=== PATIENT | female | born 1950 | race Hispanic/Latino ===

== ENCOUNTER 2018-12-09 07:37 | Day surgery (SDC) | payer OTHER ==
[2018-12-09 08:23] VITALS: PULSE 80; RESP 20; TEMP 97.5; O2SAT 97
--- NOTE | 2018-12-09 09:17 | CP.SDSHP ---
Same Day Surgery H & P - History Proposed Procedure: COLONSCOPY Pre-Op Diagnosis: SEE NOTES - Previous Medical/Surgical History Cardiac: Hypertension Neuro: Other Misc: Other Pain: 4.Moderate Pain - Allergies Allergies: Allergies suxamethonium chloride Allergy (Uncoded 12/09/18 08:07) ANAPHYLAXIS - Physical Exam General Appearance: N Vital Signs: Vital Signs 12/09/18 08:00 Temperature 97.5 F L Pulse Rate 80 Respiratory 20 Rate Blood Pressure 130/87 O2 Sat by Pulse 97 Oximetry Mental Status: Alert & Oriented x3 Neuro: WNL Heart: Other Lungs: WNL GI: Other - {Optional Preform as Required} Breast: WNL Abdomen: Other Rectal: Other Integument: WNL : WNL Ortho: WNL ENT: WNL - Impression Pt. Evaluated Today:Candidate for Anesthesia & Procedure: Yes - Date & Time Time: 09:17 Short Stay Discharge - Short Stay Discharge Admitting Diagnosis/Reason for Visit: ENCOUNTER FOR SCREENING FOR MALIGNANT NEOPLASM OF Disposition: HOME/ ROUTINE
[2018-12-09] MEDS ORDERED: Lactated Ringer's 1,000 ML IV ONE ×2 (09:21→09:50)
[2018-12-09] MEDS ORDERED: Propofol 10 mg/ml Inj (20 ML) ONE ×4 (09:27→10:28)
[2018-12-09] MEDS ORDERED: Lidocaine Hydrochloride 5 ML INJ ONE ×2 (09:37→10:31)
[2018-12-09] MEDS ORDERED: Midazolam 2 MG/2 ML VIAL ONE (09:59)
[2018-12-09] MEDS ORDERED: Albuterol HFA 90 mcg/actuation (8 g) ONE (10:31)
[2018-12-09 10:44] VITALS: BP 120/67
== END 2018-12-09 10:48 | disposition home or self-care (01) ==
LOC: C.ENDO 07:37
PROVIDERS: ATTEND Specialist
DX: D12.2 Benign neoplasm of ascending colon (principal); D12.0 Benign neoplasm of cecum; D12.4 Benign neoplasm of descending colon; K64.8 Other hemorrhoids; K64.4 Residual hemorrhoidal skin tags
CPT/HCPCS: 45380; 88305; J2250; J2704; J2930; J7120